=== PATIENT | female | born 1990 | race Caucasian/White ===

== ENCOUNTER 2019-04-17 20:58 | Emergency (ER) | payer OTHER, SELFPAY ==
[2019-04-17 21:15] VITALS: BP 112/68; PULSE 130; RESP 28; TEMP 37.5; O2SAT 94; BMI 18.5
[2019-04-17 21:41] LABS: Basophils % 0.5 %; Eosinophils % 0.5 %; Hematocrit 35.6 % (37.0-47.0); Hemoglobin 11.2 g/dL (11.5-15.3); Lymphocytes # 0.7 10^3/uL (0.8-4.8); Lymphocytes % 11.7 %; Mean Corpuscular HGB Conc 31.5 g/dL (30.0-36.0); Mean Corpuscular Hemoglobin 27.9 pg (28.0-34.0); Mean Corpuscular Volume 88.8 fL (81-99); Mean Platelet Volume 11.4 fL (7.4-10.4); Monocytes # 0.5 10^3/uL (0.2-0.9); Neutrophils # 4.7 10^3/uL (1.8-7.7); Neutrophils % 78.8 %; Nucleated Red Blood Cells % 0 %; Platelet Count 163 10^3/cmm (130-400); Red Blood Count 4.01 10^6/uL (4.1-5.3); Red Cell Distribution Width 12.6 % (12.1-15.1); White Blood Count 5.9 10^3/uL (4.0-10.0)
[2019-04-17 21:44] LABS: Add Urine Culture? Yes; Bacteria Urine 3+; Bilirubin Urine Neg (NEGATIVE); Blood Urine 3+ (Negative); Glucose Urine UA Norm (Normal); Ketones Urine Negative (Negative); Leukocyte Esterase Urine Negative (Negative); Nitrate Urine Positive (Negative); Protein Urine Neg (Negative); RBC Urine >100 /hpf (0-2); Specific Gravity, Urine 1.015 (1.005-1.030); Urine Appearance Cloudy (CLEAR); Urine Color Yellow (Yellow); Urobilinogen Urine Norm (Negative); pH Urine 6.5 (5-7)
[2019-04-17 21:57] LABS: Alanine Aminotransferase 24 U/L (0-33); Albumin Level 3.6 g/dL (3.5-5.2); Alkaline Phosphatase 85 IU/L (35-105); Anion Gap 16.4 (5-19); Aspartate Amino Transferase 30 U/L (0-32); Blood Urea Nitrogen 10 mg/dL (6-20); Calcium 9.2 mg/dL (8.5-10.5); Carbon Dioxide 18 mmol/L (22-29); Chloride 101 mmol/L (98-107); Globulin 3.3 g/dL (1.3-4.6); Glomerular Filtration Rate 84.8 mL/min (90-130); Glucose 161 mg/dL (65-115); Potassium 3.4 mmol/L (3.5-5.1); Sodium 132 mmol/L (136-145); Total Bilirubin 0.2 mg/dL (0.15-1.2); Total Protein 6.9 g/dL (6.6-8.7)
--- NOTE | 2019-04-17 22:02 | ED_ITS ---
Entered by Alcira Lemons, acting as scribe for Brock Mcgrath DO Apr 17, 2019 20:58 Documented by User: Gonzalo Yan DO 04/18/19 03:05 HPI - Female Genitourinary General: Chief complaint: Urogenital-Female Stated complaint: lower back pain Time Seen by Provider: 04/17/19 22:02 [facility] ED PFSH: Social History Smoking and tobacco status: current every day smoker Course Vital Signs: Vital signs: Vital Signs Temperature 99.5 F 04/17/19 21:15 Pulse Rate 102 H 04/18/19 00:59 Respiratory Rate 16 04/18/19 00:59 Blood Pressure 88/41 04/18/19 00:59 Pulse Oximetry 95 04/18/19 00:59 MDM - Female MDM Narrative: Medical decision making narrative: No leukocytosis. Heart rate has decreased since infusion of 2 L of fluid. She is given 1 dose of Rocephin here, no more vomiting since the use of Haldol and Ativan. She has been resting comfortably. She will be discharged on ondansetron and Thorazine for nausea/cyclic vomiting, pain medication, and antibiotics. Follow-up with urology. Lab Data: Labs: Lab Results 04/17/19 04/17/19 04/17/19 Range/Units 21:19 21:35 21:35 WBC 5.9 (4.0-10.0) 10^3/ uL RBC 4.01 L (4.1-5.3) 10^6/u L Hgb 11.2 L (11.5-15.3) g/dL Hct 35.6 L (37.0-47.0) % MCV 88.8 (81-99) fL MCH 27.9 L (28.0-34.0) pg MCHC 31.5 (30.0-36.0) g/dL RDW 12.6 (12.1-15.1) % Plt Count 163 (130-400) 10^3/c mm MPV 11.4 H (7.4-10.4) fL Neut % (Auto) 78.8 % Lymph % (Auto) 11.7 % [place] % (Auto) 8.0 % Eos % (Auto) 0.5 % Baso % (Auto) 0.5 % Neut # (Auto) 4.7 (1.8-7.7) 10^3/u L Lymph # (Auto) 0.7 L (0.8-4.8) 10^3/u L Lim[place] # (Auto) 0.5 (0.2-0.9) 10^3/u L Eos # (Auto) 0.0 (0.0-0.8) 10^3/u L Baso # (Auto) 0.0 (0.0-0.1) 10^3/u L Nucleated RBC % (a uto) 0 % Nucleated RBCs # 0.0 /100WBC Sodium 132 L (136-145) mmol/L Potassium 3.4 L (3.5-5.1) mmol/L Chloride 101 (98-107) mmol/L Carbon Dioxide 18 L (22-29) mmol/L Anion Gap 16.4 (5-19) BUN 10 (6-20) mg/dL Creatinine 0.8 (0.5-0.9) mg/dL GFR Calculation 84.8 L (90-130) mL/min Glucose 161 H (65-115) mg/dL Calcium 9.2 (8.5-10.5) mg/dL Total Bilirubin 0.2 (0.15-1.2) mg/dL AST 30 (0-32) U/L ALT 24 (0-33) U/L Alkaline Phosphata se 85 (35-105) IU/L Total Protein 6.9 (6.6-8.7) g/dL Albumin 3.6 (3.5-5.2) g/dL Globulin 3.3 (1.3-4.6) g/dL Urine Color Yellow (Yellow) Urine Appearance Cloudy (CLEAR) Urine pH 6.5 (5-7) Ur Specific Gravit y 1.015 (1.005-1.030) Urine Protein Neg (Negative) Urine Glucose (UA) Norm (Normal) Urine Ketones Negative (Negative) Urine Blood 3+ H (Negative) Urine Nitrate Positive H (Negative) Urine Bilirubin Neg (NEGATIVE) Urine Urobilinogen Norm (Negative) mg/dL Ur Leukocyte Christiana ase Negative (Negative) Urine RBC >100 H (0-2) /hpf Urine WBC 10-15 H (0-5) /hpf Ur Squamous Epith Cells 5-10 H (0-5) Urine Bacteria 3+ H (NONE) Discharge Plan Discharge Patient Disposition: Home, Self-Care Clinical Impression: Interstitial cystitis, Cyclical vomiting syndrome Urinary tract infection Qualifiers: Urinary tract infection type: acute cystitis Hematuria presence: with hematuria Qualified Code(s): N30.01 - Acute cystitis with hematuria Condition: Stable Prescriptions: New cefdinir 300 mg capsule 300 mg PO Q12H 7 Days Qty: 14 RF: 0 Zofran 4 mg tablet 4 mg PO Q6H Qty: 10 RF: 0 chlorpromazine 25 mg tablet 25 mg PO Q6H PRN (Reason: nausea and vomiting) Qty: 10 RF: 0 Percocet 10-325 mg tablet 1 tab PO Q6H PRN (Reason: pain) Qty: 7 RF: 0 Discharge Orders: Discharge Order (Routine); Ordered 04/18/19 Ordered By: Gonzalo Yan Referrals: Wayne Mcmanus MD [Physician] - 4-7 days Gustavo Pastrana MD [Family Provider] - Discharge Diet: Advance as tolerated and Clear Liquid Discharge Activity: Increase activity as tolerated Patient Instructions: Urinary Tract Infection - Women, Vomiting - Adult Activity Restrictions/Additional Instructions: Take the chlorpromazine scheduled every 6 hours for the first 24 hours, then as needed. Zofran as needed. Return for continued fever despite 3 doses of antibiotics, continuing to vomit liquids and/or medications, other concerning symptoms. Discharge Date/Time: 04/18/19 01:01 Coding Level of Care Code ED Bridal Stylist Sales Consultant for Chg Fwd Exam Comprehensive Documented by User: Brock Mcgrath DO 04/19/19 15:22 HPI - Female Genitourinary General: Chief complaint: Urogenital-Female Stated complaint: lower back pain Time Seen by Provider: 04/17/19 22:02 Source: patient Mode of arrival: ambulatory Limitations: no limitations History of Present Illness: HPI Narrative: 28 yo Female presents to ED with complaint of UTI. Pt states that she has a kidney disorder and normally has pain but her symptoms started getting worse today. Pt states that she also has cyclic vomiting disorder that she has a port in for. Pt states that she is seen by Dr. Mcmanus and she would like us to call him. Pt states that she started testing positive for UTI last weekend. Pt states that it is difficult for her to tell when she is having a flair of her kidney disorder or when things are worse, like this episode, until it progresses. Pt states that having blood in her urine is pretty normal for her. Pt states that she has been running a fever and it broke while she was at home earlier. MD elicited complaint: UTI Pertinent past history: recurrent UTIs Onset (ago): week(s) Location of symptoms: low back Severity scale (1-10): 10 Consistency: progressively worsening Vaginal discharge: none Vaginal bleeding: none Urinary symptoms: Flank Pain Exacerbating factors: none Relieving factors: none Associated symptoms: Reports fevers/chills; Deny abdominal pain, headache(s), nausea or syncope Treatment prior to arrival: none Date of Last Menstrual Period: 04/03/19 Review of Systems Const: Reports: fever; Denies: chills, body aches, fatigue, malaise or night sweats Eyes: Denies: change in vision or blurry vision ENMT: Denies: throat pain, oral sores/lesions, dental pain, nasal discharge or nasal congestion Card: Denies: chest pain, palpitations, irregular heart rhythm, edema, syncope, shortness of breath on exertion, shortness of breath when lying down or leg pain with exertion Resp: Denies: shortness of breath, productive cough, non-productive cough or wheezing GI: Denies: abdominal pain, nausea, vomiting, vomiting blood, coffee grounds in vomit, difficulty swallowing, heartburn/indigestion, diarrhea, constipation, cramping, blood in stool or black tarry stool : Reports: flank pain; Denies: painful urination, urinary frequency, urinary urgency, urinary incontinence or blood in urine Musc: Denies: neck pain, back pain, extremity pain, extremity swelling, joint pain or joint swelling Skin/Breast: Denies: rash, itching or redness Neuro: Denies: headache, numbness in extremities, weakness in extremities, changes in sensation, lack of coordination, difficulty walking, frequent falls, dizziness, vertigo or confusion Psych: Denies: anxiety, depression, loss of interest, visual hallucinations, auditory hallucinations, suicidal ideation or homicidal ideation Endo: Denies: excessive urination, excessive thirst, tired all the time or cold intolerance Vj/Lymph: Denies: easy bruising, easy bleeding, petechiae, enlarged lymph nodes or tender lymph nodes PFSH ED PFSH: Social History Smoking and tobacco status: current every day smoker Female Reproductive History: Date of last menstrual period: 04/03/19 Physical Exam Const: COMMON NORMALS: average body habitus, oriented x3 and alert GENERAL APPEARANCE: cooperative, well kempt, well developed and in distress; not comfortable ORIENTATION/CONSCIOUSNESS: Yes awake, Yes oriented to person and Yes oriented to place HENMT: COMMON NORMALS: normocephalic, head/scalp atraumatic, EAC's normal, TM's normal bilaterally, external nose normal, moist oral mucous membranes and oropharynx normal HEAD & SCALP: normocephalic and atraumatic NOSE: external nose normal EXTERNAL AUDITORY CANAL: EAC's normal TYMPANIC MEMBRANE: TM's normal bilaterally MOUTH: oral and palatal mucosa normal, lip normal and tongue normal THROAT: posterior oropharynx normal and tonsils normal Eye: COMMON NORMALS: PERRL, EOMs intact bilaterally, conjunctivae normal and no scleral icterus CONJUNCTIVA: Yes conjunctivae normal PUPIL: Yes PERRL Neck/C-Spine: COMMON NORMALS: full ROM, no lymphadenopathy, supple, no meningeal signs and thyroid normal THYROID: thyroid normal and asymmetrical Lymph: LYMPHATIC: no lymphadenopathy noted Resp: COMMON NORMALS: normal respiratory effort, no retractions, no use of accessory muscles and clear to auscultation bilaterally AUSCULTATION: clear to auscultation bilaterally Cardio: COMMON NORMALS: regular rate and regular rhythm RATE: regular rate RHYTHM: regular rhythm HEART SOUNDS: no murmurs GI: COMMON NORMALS: normal to inspection, nondistended, normoactive bowel sounds, soft to palpation and no hepatosplenomegaly PALPATION: Yes soft and Yes no hepatosplenomegaly : COMMON NORMALS: Yes no CVA tenderness BLADDER/KIDNEY EXAM: Yes no CVA tenderness Back/Pelvis: COMMON NORMALS: no CVA tenderness LUMBAR SPINE/LOWER BACK: Yes normal to inspection Extremity: COMMON NORMALS: no clubbing, cyanosis or edema, no calf tenderness and no pedal edema Neuro: COMMON NORMALS: oriented x3 SENSORIUM/ORIENTATION: Yes alert, Yes oriented to person and Yes oriented to place MENINGEAL SIGNS: Yes no meningeal signs Psych: APPEARANCE: Yes well kempt Skin: COMMON NORMALS: no rashes or lesions noted and skin turgor normal GENERAL SKIN EXAM: no rashes or lesions noted and turgor normal Course ED course: Reviewed findings with Dr. Yan care turned over to Dr. Yan at change of shift. He will disposition patient Consultations: Consultation #1: Dr. Mcmanus, Urologist Time: 22:40 Vital Signs: Vital signs: Vital Signs Temperature 99.5 F 04/17/19 21:15 Pulse Rate 102 H 04/18/19 00:59 Respiratory Rate 16 04/18/19 00:59 Blood Pressure 88/41 04/18/19 00:59 Pulse Oximetry 95 04/18/19 00:59 MDM - Female Lab Data: Labs: Lab Results 04/17/19 04/17/19 04/17/19 Range/Units 21:19 21:35 21:35 WBC 5.9 (4.0-10.0) 10^3/ uL RBC 4.01 L (4.1-5.3) 10^6/u L Hgb 11.2 L (11.5-15.3) g/dL Hct 35.6 L (37.0-47.0) % MCV 88.8 (81-99) fL MCH 27.9 L (28.0-34.0) pg MCHC 31.5 (30.0-36.0) g/dL RDW 12.6 (12.1-15.1) % Plt Count 163 (130-400) 10^3/c mm MPV 11.4 H (7.4-10.4) fL Neut % (Auto) 78.8 % Lymph % (Auto) 11.7 % [place] % (Auto) 8.0 % Eos % (Auto) 0.5 % Baso % (Auto) 0.5 % Neut # (Auto) 4.7 (1.8-7.7) 10^3/u L Lymph # (Auto) 0.7 L (0.8-4.8) 10^3/u L [place] # (Auto) 0.5 (0.2-0.9) 10^3/u L Eos # (Auto) 0.0 (0.0-0.8) 10^3/u L Baso # (Auto) 0.0 (0.0-0.1) 10^3/u L Nucleated RBC % (a uto) 0 % Nucleated RBCs # 0.0 /100WBC Sodium 132 L (136-145) mmol/L Potassium 3.4 L (3.5-5.1) mmol/L Chloride 101 (98-107) mmol/L Carbon Dioxide 18 L (22-29) mmol/L Anion Gap 16.4 (5-19) BUN 10 (6-20) mg/dL Creatinine 0.8 (0.5-0.9) mg/dL GFR Calculation 84.8 L (90-130) mL/min Glucose 161 H (65-115) mg/dL Calcium 9.2 (8.5-10.5) mg/dL Total Bilirubin 0.2 (0.15-1.2) mg/dL AST 30 (0-32) U/L ALT 24 (0-33) U/L Alkaline Phosphata se 85 (35-105) IU/L Total Protein 6.9 (6.6-8.7) g/dL Albumin 3.6 (3.5-5.2) g/dL Globulin 3.3 (1.3-4.6) g/dL Urine Color Yellow (Yellow) Urine Appearance Cloudy (CLEAR) Urine pH 6.5 (5-7) Ur Specific Gravit y 1.015 (1.005-1.030) Urine Protein Neg (Negative) Urine Glucose (UA) Norm (Normal) Urine Ketones Negative (Negative) Urine Blood 3+ H (Negative) Urine Nitrate Positive H (Negative) Urine Bilirubin Neg (NEGATIVE) Urine Urobilinogen Norm (Negative) mg/dL Ur Leukocyte Christiana ase Negative (Negative) Urine RBC >100 H (0-2) /hpf Urine WBC 10-15 H (0-5) /hpf Ur Squamous Epith Cells 5-10 H (0-5) Urine Bacteria 3+ H (NONE) Discharge Plan Discharge Patient Disposition: Home, Self-Care Clinical Impression: Interstitial cystitis, Cyclical vomiting syndrome Urinary tract infection Qualifiers: Urinary tract infection type: acute cystitis Hematuria presence: with hematuria Qualified Code(s): N30.01 - Acute cystitis with hematuria Condition: Stable Prescriptions: New cefdinir 300 mg capsule 300 mg PO Q12H 7 Days Qty: 14 RF: 0 Zofran 4 mg tablet 4 mg PO Q6H Qty: 10 RF: 0 chlorpromazine 25 mg tablet 25 mg PO Q6H PRN (Reason: nausea and vomiting) Qty: 10 RF: 0 Percocet 10-325 mg tablet 1 tab PO Q6H PRN (Reason: pain) Qty: 7 RF: 0 Discharge Orders: Discharge Order (Routine); Ordered 04/18/19 Ordered By: Gonzalo Yan Referrals: Wayne Mcmanus MD [Physician] - 4-7 days Gustavo Pastrana MD [Family Provider] - Discharge Diet: Advance as tolerated and Clear Liquid Discharge Activity: Increase activity as tolerated Patient Instructions: Urinary Tract Infection - Women, Vomiting - Adult Activity Restrictions/Additional Instructions: Take the chlorpromazine scheduled every 6 hours for the first 24 hours, then as needed. Zofran as needed. Return for continued fever despite 3 doses of antibiotics, continuing to vomit liquids and/or medications, other concerning symptoms. Discharge Date/Time: 04/18/19 01:01 Coding Level of Care Code ED Bridal Stylist Sales Consultant for Chg Fwd Exam Comprehensive The documentation recorded by the Vesta duckworth Carmen, accurately reflects the service I personally performed and the decisions made by Ramila sims Curtis L, DO Apr 17, 2019 20:58
[2019-04-17] MEDS: sodium chloride 0.9% 1,000 ML 999 ML IV ×2 (22:36→23:36)
[2019-04-17 22:37] VITALS: RESP 18; O2SAT 98
[2019-04-17] MEDS: HYDROmorphone 1 mg/mL INJ 1 mL 0.5 MG IVP (22:37)
[2019-04-17] MEDS: LORazepam 2 mg/mL INJ 1 mL 1 MG IVP (23:01)
[2019-04-17] MEDS: haloperidol inj 5 mg/mL INJ 1 mL IVP (23:01)
[2019-04-17] MEDS: cefTRIAXone 1,000 MG in sodium chloride 0.9% (plus) 50 ML 100 MG IV (23:34)
[2019-04-18 00:59] VITALS: BP 88/41; PULSE 102; RESP 16; O2SAT 95
--- NOTE | 2019-04-20 14:24 | DCPLANNER ---
manager general had message to schedule a follow up appointment for patient with Dr. Mcmanus. manager general called the office of Dr. Mcmanus, spoke with Lin, gave clinic patients informatio. manager general was told that patients information would be printed and given to Rafaela for review. Clinic will call patient with appointment information, manager of case management will call for appointment information.
--- NOTE | 2019-04-23 11:44 | DCPLANNER ---
Patient has a follow up appointment scheduled for Saturday, April 27, 2019 at 3:[address] Mcmanus.
--- NOTE | 2019-05-05 13:04 | DCPLANNER ---
Patients appointment scheduled for 04.27.19 was rescheduled.
== END 2019-04-18 01:01 | disposition home or self-care (01) ==
PROVIDERS: Emergency Provider Emergency Medicine; Family Provider Family Medicine
DX: N30.10 Interstitial cystitis (chronic) without hematuria (principal); R11.15 Cyclical vomiting syndrome unrelated to migraine; F17.200 Nicotine dependence, unspecified, uncomplicated
CPT/HCPCS: 80053; 81001; 85025; 87077; 87086; 87186; 96360; 96365; 96366; 96368; 96375; 99283; 99284; A9270; J0696; J1170; J1630; J2060; J7030

== ENCOUNTER → 2019-08-03 14:12 | Outpatient (BNVA) | payer OTHER, SELFPAY | PROVIDERS: Family Provider Family Medicine; Visit Provider Urology | DX: N30.10 Interstitial cystitis (chronic) without hematuria (principal) | CPT/HCPCS: 81001 ==

== ENCOUNTER → 2020-02-03 08:50 | Outpatient (BNVA) | payer OTHER, SELFPAY | PROVIDERS: Family Provider Family Medicine; Referring Provider Physician Assistant Medical; Visit Provider Specialist | DX: G95.9 Disease of spinal cord, unspecified (principal); M47.14 Other spondylosis with myelopathy, thoracic region; D51.0 Vitamin B12 deficiency anemia due to intrinsic factor deficiency; G32.0 Subacute combined degeneration of spinal cord in diseases classified elsewhere; G43.119 Migraine with aura, intractable, without status migrainosus; F17.210 Nicotine dependence, cigarettes, uncomplicated | CPT/HCPCS: 99204 ==

== ENCOUNTER → 2020-08-17 13:00 | Outpatient (BNVA) | payer BC, SELFPAY | PROVIDERS: Family Provider Family Medicine; Visit Provider Specialist | DX: G43.711 Chronic migraine without aura, intractable, with status migrainosus (principal); M47.14 Other spondylosis with myelopathy, thoracic region; E53.8 Deficiency of other specified B group vitamins; G32.0 Subacute combined degeneration of spinal cord in diseases classified elsewhere; R11.15 Cyclical vomiting syndrome unrelated to migraine; F17.210 Nicotine dependence, cigarettes, uncomplicated | CPT/HCPCS: 64615; J0585 ==

== ENCOUNTER → 2020-08-29 14:10 | Outpatient (BNVA) | payer BC, SELFPAY | PROVIDERS: Family Provider Family Medicine; PCP Family Medicine; Visit Provider Urology | DX: N30.10 Interstitial cystitis (chronic) without hematuria (principal); M79.7 Fibromyalgia | CPT/HCPCS: 81003 ==

== ENCOUNTER → 2020-11-03 07:36 | Outpatient (BNVA) | payer BC, SELFPAY | PROVIDERS: Family Provider Family Medicine; PCP Family Medicine; Visit Provider Urology | DX: N30.10 Interstitial cystitis (chronic) without hematuria (principal); R31.0 Gross hematuria | CPT/HCPCS: 81003 ==

== ENCOUNTER → 2020-11-16 13:21 | Outpatient (BNVA) | payer BC, SELFPAY | PROVIDERS: Family Provider Family Medicine; PCP Family Medicine; Visit Provider Specialist | DX: G95.9 Disease of spinal cord, unspecified (principal); M47.14 Other spondylosis with myelopathy, thoracic region; D51.0 Vitamin B12 deficiency anemia due to intrinsic factor deficiency; G32.0 Subacute combined degeneration of spinal cord in diseases classified elsewhere; G43.711 Chronic migraine without aura, intractable, with status migrainosus; R11.15 Cyclical vomiting syndrome unrelated to migraine; F17.200 Nicotine dependence, unspecified, uncomplicated | CPT/HCPCS: 64616; J0585 ==

== ENCOUNTER → 2021-05-29 17:26 | Outpatient (BNVA) | payer BC, SELFPAY | PROVIDERS: Family Provider Family Medicine; PCP Family Medicine; Visit Provider Urology | DX: R31.0 Gross hematuria (principal); N30.10 Interstitial cystitis (chronic) without hematuria | CPT/HCPCS: 81003; 87077; 87086; 87184 ==

== ENCOUNTER → 2022-04-11 08:48 | Outpatient (BNVA) | payer BC, SELFPAY | PROVIDERS: Family Provider Family Medicine; PCP Family Medicine; Visit Provider Urology | DX: R31.0 Gross hematuria (principal); N30.10 Interstitial cystitis (chronic) without hematuria | CPT/HCPCS: 81003 ==

== ENCOUNTER → 2023-05-21 10:15 | Outpatient (BNVA) | payer BC, SELFPAY | PROVIDERS: Family Provider Family Medicine; PCP Family Medicine; Visit Provider Internal Medicine | DX: R31.0 Gross hematuria (principal); N39.0 Urinary tract infection, site not specified; N30.10 Interstitial cystitis (chronic) without hematuria; R11.15 Cyclical vomiting syndrome unrelated to migraine; R79.89 Other specified abnormal findings of blood chemistry | CPT/HCPCS: 80048; 84244 ==

== ENCOUNTER → 2023-07-23 12:06 | Outpatient (BNVA) | payer BC, SELFPAY | PROVIDERS: Family Provider Family Medicine; PCP Family Medicine; Visit Provider Internal Medicine | DX: N30.10 Interstitial cystitis (chronic) without hematuria (principal) | CPT/HCPCS: 36415; 80048 ==